=== PATIENT | male | born 1960 | race Caucasian/White ===

== ENCOUNTER 2023-05-11 11:57 | Emergency (ER) | payer BC, OTHER ==
[~2023-05-11] VITALS: Ht 167.6 cm; Wt 68.1 kg
[2023-05-11 12:15] VITALS: RESP 18; O2SAT 99
[2023-05-11 13:50] VITALS: BP 162/93; PULSE 64
[2023-05-11] MEDS ORDERED: OFL50TS OT (14:08)
[2023-05-11] MEDS ORDERED: AMOX500T3 PO (14:08)
== END 2023-05-11 14:05 | disposition left against medical advice (07) ==
LOC: ER 11:57
DX: H66.93 Otitis media, unspecified, bilateral (principal); I10 Essential (primary) hypertension